=== PATIENT | female | born 1970 | race Two or more races ===

== ENCOUNTER 2021-05-26 15:01 | Outpatient (CLI) | payer OTHER | END 2021-05-26 15:17 | disposition home or self-care (01) | LOC: RAD 15:01 | PROVIDERS: ATTEND Family Medicine | DX: M25.461 Effusion, right knee (principal) ==

== ENCOUNTER 2021-06-01 13:03 | Outpatient (CLI) | payer OTHER | END 2021-06-01 13:10 | disposition home or self-care (01) | LOC: MAMO-SONO 13:03 | PROVIDERS: ATTEND Family Medicine | DX: R92.1 Mammographic calcification found on diagnostic imaging of breast (principal); Z12.31 Encounter for screening mammogram for malignant neoplasm of breast ==

== ENCOUNTER 2021-06-22 12:00 | Outpatient (CLI) | payer OTHER | END 2021-06-22 12:16 | disposition home or self-care (01) | LOC: SONOGRAMA 12:00 | PROVIDERS: ATTEND Family Medicine | DX: E03.8 Other specified hypothyroidism (principal) ==

== ENCOUNTER → 2022-08-30 | Outpatient (CLI) | payer OTHER | END | disposition home or self-care (01) | LOC: MAMO-SONO 07:59 | DX: N64.4 Mastodynia (principal) ==